=== PATIENT | male | born 1950 | race Caucasian/White ===

== ENCOUNTER 2017-06-09 01:16 | Observation (INO) | payer OTHER, SELFPAY ==
[~2017-06-09] VITALS: Ht 180.3 cm; Wt 113.4 kg
[~2017-06-09 01:16] MED LIST: ACET325S PO; ALBU90OI INH; AMIT50 PO; ASCO500; ASPI325EC PO; ASPI81CH PO; CHLO5 PO; CILO50 PO; CLOP75 PO; CYCL10 PO; Cephalexin500 MG PO; DISU250 PO; DULO60 PO; FERR325 PO; FISH1000; FURO20 PO; FURO80 PO; GABA100 PO; GABA300 PO; Hair, Skin & N1 EACH PO; Isosorbide Mono30 MG PO; MECL12.5 PO; MELO7.5 PO; METH10 PO; METO50 PO; MILK THISTLE140 MG PO; MULTI VITAMIN1 EACH PO; MULVITMIND PO; Mirapex0.25 MG PO; NADO20 PO; NICO21TP TD; Nitrostat0.3 MG SL; OMEP10ER; OMEPRAZOLE MAGN20 MG PO; OXYC10ER PO; OXYC10TA19 PO; Oxycodone HCl20 M1 PO; PRAM.125 PO; PRAM.5 PO; Percocet 5-3251 EACH PO; Prinivil5 MG PO; ROXICODONE5 MG PO; SERT100 PO; SERT50 PO; SPIR50 PO; TIZANIDINE HCL4 MG PO; TRAM50 PO; Ventolin Soln3 ML
[2017-06-09 04:55] LABS: BASOPHILS PERCENT AUTO 1 % (0-2); EOSINOPHILS ABSOLUTE AUTO 0.08 K/mm3 (0.00-0.68); EOSINOPHILS PERCENT AUTO 1 % (0-6); Hematocrit 50.3 % (37.0-53.0); Hemoglobin 17.3 g/dL (13.5-17.5); IMMATURE GRAN ABSOLUTE AUTO 0.03 K/mm3 (0.00-0.10); IMMATURE GRAN PERCENT AUTO 0 % (0-1); LYMPHOCYTES ABSOLUTE AUTO 1.48 K/mm3 (0.84-5.20); LYMPHOCYTES PERCENT AUTO 18 % (21-46); MONOCYTES ABSOLUTE AUTO 0.68 K/mm3 (0.16-1.47); MONOCYTES PERCENT AUTO 8 % (4-13); Mean Corpuscular HGB 31.1 pg (26.0-34.0); Mean Corpuscular HGB Conc 34.4 g/dL (31.5-36.5); Mean Corpuscular Volume 90 fL (80-100); Mean Platelet Volume 9.8 fL (9.1-12.4); NEUTROPHILS ABSOLUTE AUTO 5.71 K/mm3 (1.96-9.15); NEUTROPHILS PERCENT AUTO 71 % (41-73); Platelet Count 156 K/mm3 (150-400); RDW Coefficient Variation 14.9 % (11.7-14.2); Red Blood Cell Count 5.57 M/mm3 (4.30-5.90); White Blood Cell Count 8.08 K/mm3 (4.00-11.30)
[2017-06-09 05:22] LABS: Alanine Aminotransfer (ALT/SGP 182 U/L (12-78); Albumin, Blood 2.9 g/dL (3.4-5.0); Albumin/Globulin Ratio 0.7 (0.8-1.8); Alk Phos 117 U/L (50-136); Anion Gap 15 mmol/L (6-16); Aspartate Aminotrans (AST/SGOT 292 U/L (12-37); Bilirubin, Total 0.6 mg/dL (0.1-1.0); Blood Urea Nitrogen 18 mg/dL (8-24); Bun/Creatinine Ratio 19.5 (12.0-20.0); CO2, Blood 21 mmol/L (21-32); Calcium, Blood 8.3 mg/dL (8.5-10.1); Chloride, Blood 107 mmol/L (98-108); Creatinine, Blood 0.92 mg/dL (0.60-1.20); Ethanol (Alcohol), Blood, Med 187 mg/dL; Globulin, Blood 4.4 g/dL (2.2-4.0); Glomerular Filtration Rate >60 (60-); Glucose, Blood 110 mg/dL (70-99); Potassium, Blood 3.9 mmol/L (3.5-5.5); Salicylate 2.7 mg/dL (2.8-20.0); Sodium, Blood 143 mmol/L (136-145); Total Protein, Blood 7.3 g/dL (6.4-8.2)
[2017-06-09 05:25] LABS: Acetaminophen, Random <2.0 ug/mL (10.0-30.0)
[2017-06-09 05:56] LABS: Source, Urine Clean Catch
[2017-06-09 06:13] LABS: Bilirubin, Urine Neg (Neg); Blood, Urine 2+ (Neg); Glucose Qualitative, Urine Neg (Neg); Ketones, Urine 2+ (Neg); Leukocyte Esterase, Urine Neg (Neg); Nitrite, Urine Neg (Neg); Protein, Urine 3+ (Neg); Specific Gravity, Urine 1.015 (1.003-1.022); Urobilinogen, Urine 2+ (Normal)
[2017-06-09 06:18] LABS: Appearance, Urine Clear (Clear); Color, Urine Yellow (P-Yellow)
[2017-06-09 06:19] LABS: Hyaline Casts 0-2 /lpf (0-2); U Amphetamine Screen Not Detected; U Barbituate Screen Not Detected; U Benzodiazapine Screen Not Detected; U Buprenorphine Screen Not Detected; U Cannabinoids Screen Not Detected; U Cocaine Screen Not Detected; U Methadone Screen Not Detected; U Methamphetamine Screen Not Detected; U Opiates Screen Not Detected; U Oxycodone Screen Not Detected; U Phencyclidine Screen Not Detected; U Propoxyphene Screen Not Detected
[2017-06-09 06:20] LABS: Squamous Epithelial Cells Few /hpf (Few)
[2017-06-09 06:21] LABS: Bacteria Not Seen /hpf
[2017-11-08] MEDS ORDERED: GABA300 (08:57)
[2017-11-08] MEDS ORDERED: PRAM.125 (08:58)
[2017-11-08] MEDS ORDERED: NADO20 (08:58)
[2017-11-08] MEDS ORDERED: LISI5 (08:59)
[2017-11-08] MEDS ORDERED: FURO20 (08:59)
[2017-11-08] MEDS ORDERED: SERT20L (08:59)
[2017-11-08] MEDS ORDERED: MELO7.5 (08:59)
[2017-11-08] MEDS ORDERED: AMIT50 (09:00)
[2017-11-08] MEDS ORDERED: ISOMON20 (09:00)
[2017-11-08] MEDS ORDERED: Omeprazole20 M1 (09:00)
[2017-11-08] MEDS ORDERED: CYCL10 (09:01)
[2017-12-07] MEDS ORDERED: Oxycodone HCl20 M1 PO (14:26)
[2017-12-07] MEDS ORDERED: BUPR100 PO (15:03)
== END 2017-06-09 14:10 | disposition home or self-care (01) ==
LOC: ER 01:16 → EOR 01:17
PROVIDERS: Emergency Medicine
DX: F10.129 Alcohol abuse with intoxication, unspecified (principal); F32.9 Major depressive disorder, single episode, unspecified; G89.29 Other chronic pain; M25.562 Pain in left knee; F17.200 Nicotine dependence, unspecified, uncomplicated; Z90.49 Acquired absence of other specified parts of digestive tract; Z98.890 Other specified postprocedural states; Y90.6 Blood alcohol level of 120-199 mg/100 ml
CPT/HCPCS: 36415; 80053; 81001; 84443; 85025; 87086; 87147; 99285; G0378; G0480

== ENCOUNTER → 2018-07-04 | Outpatient (CLI) | payer OTHER ==
[~2018-07-04] MED LIST changes: +ALBU90OI61 INH; +BUPR100 PO; +CYCL10; +FURO20; +ISOMON20; +LISI5 PO; +MELO7.5; +Omeprazole20 M1 PO; +SERT20L PO; +SPIR25 PO; +STIOLTO RESPIMAT4 GM INH; +TORSE20 PO
[2018-07-04 17:30] LABS: Appearance, Urine Clear (Clear); Bilirubin, Urine Neg (Neg); Blood, Urine Neg (Neg); Color, Urine Yellow (P-Yellow); Glucose Qualitative, Urine Neg (Neg); Ketones, Urine Neg (Neg); Leukocyte Esterase, Urine Neg (Neg); Nitrite, Urine Neg (Neg); Protein, Urine 2+ (Neg); Specific Gravity, Urine 1.015 (1.003-1.022); Urobilinogen, Urine 2+ (Normal)
[2018-07-04 18:18] LABS: Bacteria Rare /hpf; Red Blood Cells, Urine Not Seen /hpf (0-2); Squamous Epithelial Cells Many /hpf (Few); White Blood Cells, Urine Not Seen /hpf (0-5)
[2018-07-04 18:25] LABS: Protein, Urine Random 31.2 mg/dL (0.0-11.9)
[2018-07-04 18:29] LABS: Creatinine, Urine Random 81.4 mg/dL (27.00-270.00)
== END | disposition home or self-care (01) ==
LOC: LAB SHORT 14:18 → LAB 14:18
PROVIDERS: Internal Medicine
DX: N18.3 Chronic kidney disease, stage 3 (moderate) (principal)
CPT/HCPCS: 81001; 82570; 84156

== ENCOUNTER 2018-07-05 06:49 | Day surgery (SDC) | payer OTHER ==
[~2018-07-05] VITALS: Ht 180.3 cm; Wt 104.5 kg
[2018-07-05] MEDS ORDERED: Oxycodone HCl20 M1 PO (07:48)
--- NOTE | 2018-07-05 07:50 | NUR ---
History, Chart, Medications and Allergies reviewed before start of procedure. Patient States Post-Procedure ride home has been arranged. Lungs clear T/O to Auscultation.
--- NOTE | 2018-07-05 09:29 | NUR ---
07/05/18 0929 Kalpana Wild ALL COUNTS CORRECT
--- NOTE | 2018-07-05 10:42 | NUR ---
"DAY SURGERY RN | DISCHARGE VSS. A/O. No issues. Tolerating PO fluids and crackers. Denies pain and nausea. Discharge and RX given to patient. Patient taken in wheelchair to front entrance. is ride home."
== END 2018-07-05 22:40 | disposition home or self-care (01) ==
LOC: ORSCMMR 06:49 → ORD 08:15 → ORSCMMR 22:40
PROVIDERS: Orthopaedic Surgery
PROC: 0QPH04Z Removal of Internal Fixation Device from Left Tibia, Open Approach (ICD-10-PCS; principal; 2018-07-05 08:15)
DX: T84.84XD Pain due to internal orthopedic prosthetic devices, implants and grafts, subsequent encounter (principal); F17.210 Nicotine dependence, cigarettes, uncomplicated; J44.9 Chronic obstructive pulmonary disease, unspecified; I10 Essential (primary) hypertension; I25.10 Atherosclerotic heart disease of native coronary artery without angina pectoris; F32.9 Major depressive disorder, single episode, unspecified; Z79.899 Other long term (current) drug therapy
CPT/HCPCS: J0690; J1100; J1885; J2370; J2405; J3010; J7120

== ENCOUNTER → 2018-10-14 | Outpatient (CLI) | payer OTHER ==
[2018-10-14 16:14] LABS: Creatinine, Urine Random 42.8 mg/dL (27.00-270.00); Protein, Urine Random 10.7 mg/dL (0.0-11.9)
== END | disposition home or self-care (01) ==
LOC: LAB 12:13 → LAB SHORT 12:13
PROVIDERS: Internal Medicine
DX: N18.3 Chronic kidney disease, stage 3 (moderate) (principal)
CPT/HCPCS: 82570; 84156